=== PATIENT | female | born 1945 | race Caucasian/White ===

== ENCOUNTER 2017-09-19 13:57 | Emergency (ER) | payer OTHER ==
[~2017-09-19] VITALS: Ht 168.9 cm; Wt 66.0 kg
[~2017-09-19 13:57] MED LIST: CLIN1CAP6 PO; DOXY100T PO; LEVO.2 PO; LORTA5 PO; NIFE20CA PO; SULF1TAB47 PO
[2017-09-19 13:58] VITALS: BP 85/53; PULSE 65; RESP 36; TEMP 96.8; O2SAT 100
--- NOTE | 2017-09-19 14:11 | PD ---
Physical Exam Time Seen by Provider: 14:08 Narrative 72yo F c/o dizziness, vomiting, weakness x 1 hour. Denies chest pain, SOB, abd pain. Hot to cold chills. Sher dysuria, urinary frequency. Reports taking a blood thinner but does not know the name of it. Patient seen in triage. VS reviewed. Taken to medical bed. See next providers note for final patient disposition. Data Data Last Documented VS Vital Signs Date Time Temp Pulse Resp B/P (MAP) Pulse Ox O2 Delivery O2 Flow Rate FiO2 09/19/17 13:58 96.8 65 36 85/53 (64) 100 Room Air MDM Supervised Visit with CELESTINO: Crys Perez Sep 19, 2017 14:11
[2017-09-19] MEDS ORDERED: SODIUM CHLOR 0.9% 1000 ML INJ 1,000 ML IV ONE (14:45)
[2017-09-19] MEDS ORDERED: SODIUM CHLORIDE 0.9% FLUSH 10 ML FLUSH IVF PRN (14:45)
[2017-09-19] MEDS ORDERED: ONDANSETRON HCL 4 MG/2 ML VIAL IVP ONE (14:45)
--- NOTE | 2017-09-19 15:15 | PD ---
HPI Chief Complaint: GI Complaint Time Seen by Provider: 14:35 Travel History International Travel<30 days: No Contact w/Intl Traveler<30days: No Traveled to known affect area: No History of Present Illness HPI The patient 72 years old and arrives to the ER per private vehicle. She was shopping in [place] and felt a sudden onset of dizziness nausea vomiting weakness about 1 hour prior to ER arrival. Dizziness is vertiginous in nature. To me she denies chest pain or shortness of breath. Hot and cold chills are reported. She has been in her normal state of health lately with no change in appetite are new or different medication. The patient denies sick contacts. No similar prior episodes have occurred. No otalgia or otorrhea. No tinnitus. PFSH Past Medical History Arthritis: No Asthma: No Heart Rhythm Problems: No Cardiovascular Problems: No High Cholesterol: No Chest Pain: No Congestive Heart Failure: No COPD: No Cerebrovascular Accident: No GERD: No Genitourinary: No Headaches: No Hepatitis: No Hiatal Hernia: No Hypertension: No Kidney Stones: No Musculoskeletal: No Neurologic: No Reproductive: No Respiratory: No Migraines: No Myocardial Infarction: No Renal Failure: No Seizures: No Sleep Apnea: No Ulcer: No Menopausal: Yes : 2 Para: 2 Past Surgical History Abdominal Surgery: No Appendectomy: No Cardiac Surgery: No Cholecystectomy: No Ear Surgery: No Endocrine Surgery: No Eye Surgery: No Genitourinary Surgery: No Gynecologic Surgery: No Hysterectomy: Yes Oral Surgery: No Thoracic Surgery: No Other Surgery: Yes (RT THUMB) Social History Alcohol Use: Yes (WINE 3 DAYS PER WEEK) Tobacco Use: No Substance Use: No Allergies-Medications (Allergen,Severity, Reaction): Coded Allergies: No Known Allergies (Verified , 03/11/13) Reported Meds & Prescriptions Reported Meds & Active Scripts Active [place] 5/325 (Hydrocodone-Acetaminophen) 325 Mg/5 Mg Tab 1-2 Tab PO Q4HPRN Clindamycin Hcl (Clindamycin HCl) 300 Mg Cap 300 Mg PO Q6 10 Days Reported Nifedipine 20 Mg Cap 10 Mg PO BID Bactrim Ds (Trimethoprim/Sulfamethoxazole) Tab 1 Tab PO BID Doxycycline Hyclate 100 Mg Tab 100 Mg PO BID Synthroid (Levothyroxine Sodium) 200 Mcg Tab 200 Mcg PO DAILY Review of Systems Except as stated in HPI: all other systems reviewed are Neg Physical Exam Narrative GENERAL: Well-nourished well-developed 72-year-old female speaking in full sentences and answering questions appropriately SKIN: Warm and dry. HEAD: Atraumatic. Normocephalic. EYES: Pupils equal and round. No scleral icterus. No injection or drainage. There is lateral gaze nystagmus. ENT: No nasal bleeding or discharge. Mucous membranes pink and moist. NECK: Trachea midline. No JVD. CARDIOVASCULAR: Regular rate and rhythm. RESPIRATORY: No accessory muscle use. Clear to auscultation. Breath sounds equal bilaterally. GASTROINTESTINAL: Abdomen soft, non-tender, nondistended. Hepatic and splenic margins not palpable. MUSCULOSKELETAL: Extremities without clubbing, cyanosis, or edema. No obvious deformities. NEUROLOGICAL: Cranial nerves III through XII are normal. The cerebellar function is normal. Speech memory mentation normal. PSYCHIATRIC: Appropriate mood and affect; insight and judgment normal. Data Data Last Documented VS Vital Signs Date Time Temp Pulse Resp B/P (MAP) Pulse Ox O2 Delivery O2 Flow Rate FiO2 09/19/17 17:26 09/19/17 15:45 54 58 58 09/19/17 15:40 95 Room Air 09/19/17 13:58 96.8 36 VS reviewed Orders Orders Basic Metabolic Panel (Bmp) (09/19/17 14:45) Complete Blood Count With Diff (09/19/17 14:45) Magnesium (Mg) (09/19/17 14:45) Ckmb (Isoenzyme) Profile (09/19/17 14:45) Troponin I (09/19/17 14:45) Urinalysis - C+S If Indicated (09/19/17 14:45) Chest, Single Ap (09/19/17 14:45) Ct Brain W/O Iv Contrast(Rout) (09/19/17 14:45) Blood Glucose (09/19/17 14:45) Ecg Monitoring (09/19/17 14:45) Iv Access Insert/Monitor (09/19/17 14:45) Oximetry (09/19/17 14:45) Oxygen Administration (09/19/17 14:45) Ondansetron Inj (Zofran Inj) (09/19/17 14:45) Sodium Chloride 0.9% Flush (Ns Flush) (09/19/17 14:45) Sodium Chlor 0.9% 1000 Ml Inj (Ns 1000 M (09/19/17 14:45) Orthostatic Vital Signs (09/19/17 14:45) CKMB (09/19/17 13:50) CKMB% (09/19/17 13:50) Ed Discharge Order (09/19/17 16:56) Electrocardiogram (09/19/17 16:05) Labs Laboratory Tests Test 09/19/17 13:50 White Blood Count 11.5 TH/MM3 Red Blood Count 4.27 MIL/MM3 Hemoglobin 14.3 GM/DL Hematocrit 42.1 % Mean Corpuscular Volume 98.7 FL Mean Corpuscular Hemoglobin 33.5 PG Mean Corpuscular Hemoglobin Concent 33.9 % Red Cell Distribution Width 14.0 % Platelet Count 326 TH/MM3 Mean Platelet Volume 8.5 FL Neutrophils (%) (Auto) 77.8 % Lymphocytes (%) (Auto) 14.0 % Monocytes (%) (Auto) 5.5 % Eosinophils (%) (Auto) 2.3 % Basophils (%) (Auto) 0.4 % Neutrophils # (Auto) 9.0 TH/MM3 Lymphocytes # (Auto) 1.6 TH/MM3 Monocytes # (Auto) 0.6 TH/MM3 Eosinophils # (Auto) 0.3 TH/MM3 Basophils # (Auto) 0.0 TH/MM3 CBC Comment DIFF FINAL Differential Comment Blood Urea Nitrogen 21 MG/DL Creatinine 0.84 MG/DL Random Glucose 95 MG/DL Calcium Level 10.3 MG/DL Magnesium Level 2.2 MG/DL Sodium Level 140 MEQ/L Potassium Level 4.1 MEQ/L Chloride Level 105 MEQ/L Carbon Dioxide Level 29.8 MEQ/L Anion Gap 5 MEQ/L Estimat Glomerular Filtration Rate 66 ML/MIN Total Creatine Kinase 194 U/L Creatine Kinase MB 5.4 NG/ML Creatine Kinase MB % 2.8 % Troponin I LESS THAN 0.02 NG/ML MDM Medical Decision Making Medical Screen Exam Complete: Yes Emergency Medical Condition: Yes Differential Diagnosis Arrhythmia, dehydration, UTI, coronary disease, stroke, TIA, polypharmacy Narrative Course CBC & BMP Diagram 09/19/17 13:50 Calcium Level 10.3 H, Magnesium Level 2.2 EKG shows a sinus rhythm no preexcitation morphology On the patient received IV fluids. She is mildly prerenal based on BUN creatinine ratio. The patient reports feeling much better, reassessed and ambulated about the pod without difficulty. The patient's discharge from and follow-up with primary care provider. Diagnosis Primary Impression: Nausea & vomiting Qualified Codes: R11.2 - Nausea with vomiting, unspecified Additional Impression: Dizziness Med/Other Pt SpecificInfo: No Meds Exist/No RX given Disposition: 01 DISCHARGE HOME Condition: Stable Mayank Keyes MD Sep 19, 2017 15:15
--- NOTE | 2017-09-19 15:33 | RADRPT ---
EXAM DATE/TIME: 09/19/2017 15:25 [facility] COMPARISON: No previous studies available for comparison. INDICATIONS : Dizziness, vomiting, chills, weakness. RADIATION DOSE: 35.34 CTDIvol (mGy) MEDICAL HISTORY : None SURGICAL HISTORY : Hysterectomy. ENCOUNTER: Initial ACUITY: 1 day PAIN SCALE: 0/10 LOCATION: cranial TECHNIQUE: Multiple contiguous axial images were obtained of the head. Using automated exposure control and adj ustment of the mA and/or kV according to patient size, radiation dose was kept as low as reasonably a chievable to obtain optimal diagnostic quality images. DICOM format image data is available electro nically for review and comparison. FINDINGS: CEREBRUM: The ventricles are normal for age. No evidence of midline shift, mass lesion, hemorrhage or acute in farction. No extra-axial fluid collections are seen. POSTERIOR FOSSA: The cerebellum and brainstem are intact. The 4th ventricle is midline. The cerebellopontine angle i s unremarkable. EXTRACRANIAL: The visualized portion of the orbits is intact. SKULL: The calvaria is intact. No evidence of skull fracture. CONCLUSION: Negative noncontrast CT. Todd De Souza MD on September 19, 2017 at 15:29 Board Certified Radiologist. This report was verified electronically.
--- NOTE | 2017-09-19 15:37 | RADRPT ---
EXAM DATE/TIME: 09/19/2017 14:55 [facility] COMPARISON: No previous studies available for comparison. INDICATIONS : Palpitations MEDICAL HISTORY : None. SURGICAL HISTORY : None. ENCOUNTER: Initial ACUITY: 1 day PAIN SCORE: 0/10 LOCATION: Bilateral chest FINDINGS: A single view of the chest demonstrates the lungs to be symmetrically aerated without evidence of mas s, infiltrate or effusion. The cardiomediastinal contours are unremarkable. Osseous structures are intact. There is a mild scoliosis. Mild atherosclerotic calcifications are present in the aorta. CONCLUSION: No acute disease. Todd De Souza MD on September 19, 2017 at 15:34 Board Certified Radiologist. This report was verified electronically.
[2017-09-19 15:40] VITALS: O2SAT 95
[2017-09-19 15:45] VITALS: BP_SYST 102; BP_SYST 108; BP_SYST 94; BP_DIAS 62; BP_DIAS 64; BP_DIAS 66
[2017-09-19 16:10] LABS: BASOPHIL % 0.4 % (0.0-2.0); EOSINOPHIL # 0.3 TH/MM3 (0-0.4); EOSINOPHIL % 2.3 % (0.0-4.0); HEMATOCRIT 42.1 % (35.0-46.0); HEMOGLOBIN 14.3 GM/DL (11.6-15.3); LYMPHOCYTE # 1.6 TH/MM3 (1.0-4.8); MEAN CELL VOLUME 98.7 FL (80.0-100.0); MEAN CORPUSCULAR HEMOGLOBIN 33.5 PG (27.0-34.0); MEAN CORPUSCULAR HGB CONC 33.9 % (32.0-36.0); MEAN PLATELET VOLUME 8.5 FL (7.0-11.0); MONO % 5.5 % (0.0-8.0); MONOCYTE # 0.6 TH/MM3 (0-0.9); NEUT % 77.8 % (16.0-70.0); PLATELET COUNT 326 TH/MM3 (150-450); RED BLOOD COUNT 4.27 MIL/MM3 (4.00-5.30); WHITE BLOOD COUNT 11.5 TH/MM3 (4.0-11.0)
[2017-09-19 16:33] LABS: BICARBONATE 29.8 MEQ/L (21.0-32.0); BLOOD UREA NITROGEN 21 MG/DL (7-18); CALCIUM 10.3 MG/DL (8.5-10.1); CHLORIDE 105 MEQ/L (98-107); CREATININE 0.84 MG/DL (0.50-1.00); GLOMERULAR FILTRATION RATE 66 ML/MIN (>89); GLUCOSE,RANDOM 95 MG/DL (74-106); MAGNESIUM 2.2 MG/DL (1.5-2.5); SODIUM (NA) 140 MEQ/L (136-145)
[2017-09-19 16:35] LABS: TROPONIN I LESS THAN 0.02 NG/ML (0.02-0.05)
--- NOTE | 2017-09-20 15:06 | EKG ---
Date Performed: 09/19/2017 Time Performed: 16:05:01 PTAGE: 72 years EKG: SINUS BRADYCARDIA POSSIBLE RIGHT VENTRICULAR CONDUCTION DELAY Since previous tracing, no si gnificant change noted BORDERLINE ECG PREVIOUS TRACING : 04/19/2008 18.01 DOCTOR: Param Berry Interpretating Date/Time 09/20/2017 15:05:39
== END 2017-09-19 17:29 | disposition home or self-care (01) ==
LOC: NEPC 13:57
DX: R11.2 Nausea with vomiting, unspecified (principal); R42 Dizziness and giddiness; R53.1 Weakness; R00.1 Bradycardia, unspecified; Z79.899 Other long term (current) drug therapy
CPT/HCPCS: 70450; 71045; 80048; 82550; 82552; 83735; 84484; 85025; 93005; 96361; 96374; 99285; J2405; J7030